=== PATIENT | female | born 1940 | race African-American/Black ===

== ENCOUNTER 2023-06-28 07:47 | Inpatient (IN) | payer MEDICARE, BC ==
[~2023-06-28] VITALS: Ht 165.1 cm; Wt 107.7 kg
[2023-06-28] VITALS (8 sets, daily range): BP systolic 130–145; BP diastolic 62–110; PULSE 73–95; RESP 18–31; TEMP 98–98.4
[2023-06-28 08:16] LABS: HEMATOCRIT. 44.4 % (36.0-48.0); HEMOGLOBIN. 13.5 g/dL (12.0-16.0); MEAN CORPUSCULAR HEMOGLOBIN 26.7 pg (28.0-32.0); MEAN CORPUSCULAR HGB CONC 30.5 g/dL (31.0-37.0); MEAN CORPUSCULAR VOLUME 87.5 fL (81.0-99.0); MEAN PLATELET VOLUME 10.2 fl (7.4-10.4); PLATELET 443 x1000/uL (130-400); RED BLOOD CELL COUNT 5.07 mill/uL (4.2-5.4); RED CELL DISTRIBUTION WIDTH 18.4 % (11.6-14.6)
[2023-06-28 08:32] LABS: ALANINE AMINOTRANSFERASE 59 IU/L (10-49); ALBUMIN 4.3 g/dL (3.2-4.8); ASPARTATE AMINOTRANSFERASE 46 IU/L (<34); BILIRUBIN TOTAL 0.8 mg/dL (0.1-1.0); CALCIUM 9.3 mg/dL (8.7-10.4); CARBON DIOXIDE 22 mEq/L (21-32); CHLORIDE 107 mEq/L (98-107); CREATININE 1.7 mg/dL (0.6-1.0); GLUCOSE 213 mg/dL (70-105); POTASSIUM 4.7 mEq/L (3.5-5.1); PROTEIN TOTAL 7.6 g/dL (6.0-8.3); SODIUM 139 mEq/L (136-145); UREA NITROGEN BLOOD 29 mg/dL (9-23)
[2023-06-28 08:52] LABS: DIFFERENTIAL COMMENT 1; WHITE BLOOD COUNT 47.3 x1000/uL (4.5-11.0)
[2023-06-28 08:59] LABS: TROPONIN I HIGH SENSITIVITY 189 ng/L (3.0-34)
[2023-06-28] MEDS ORDERED: CEFTRIAXONE 1GM PREMIX 50 ML IV ONE (09:30)
[2023-06-28] MEDS ORDERED: AZITHROMYCIN 500MG/250ML 250 ML IV ONE (09:30)
[2023-06-28 10:29] LABS: BG BASE EXCESS -4.4 mmol/L (-2.0-2.0); BG CARBOXYHEMOGLOBIN 0.3 % (0.5-1.5); BG DEOXYHEMOGLOBIN 1.1 % (0.0-5.0); BG FRACTION INSPIRED OXYGEN 100; BG HCO3 ACT 19.9 mmol/L (22.0-26.0); BG METHEMOGLOBIN 0.3 % (0.0-1.5); BG OXYGEN SATURATION 98.9 % (92.0-98.5); BG OXYHEMOGLOBIN 98.3 % (94.0-97.0); BG PCO2 34.7 mmHg (35.0-45.0); BG PH 7.377 (7.350-7.450); BG PO2 165.3 mmHg (75.0-100.0); BG SAMPLE SITE RIGHT BRACHIAL; BG TOTAL HEMOGLOBIN 14.6 g/dL (12.0-18.0); BG TOTAL RESPIRATORY RATE 27 b/min; BG VENT MODE MASK - BIPAP
[2023-06-28 12:14] LABS: INR 1.2; PROTHROMBIN TIME 12.6 sec (9.6-11.0)
[2023-06-28 12:54] LABS: ALANINE AMINOTRANSFERASE 55 IU/L (10-49); ALBUMIN 3.9 g/dL (3.2-4.8); ASPARTATE AMINOTRANSFERASE 46 IU/L (<34); BILIRUBIN TOTAL 0.7 mg/dL (0.1-1.0); CALCIUM 9.2 mg/dL (8.7-10.4); CARBON DIOXIDE 25 mEq/L (21-32); CHLORIDE 106 mEq/L (98-107); CREATININE 1.8 mg/dL (0.6-1.0); GLUCOSE 165 mg/dL (70-105); POTASSIUM 4.3 mEq/L (3.5-5.1); PROTEIN TOTAL 6.3 g/dL (6.0-8.3); SODIUM 141 mEq/L (136-145); UREA NITROGEN BLOOD 29 mg/dL (9-23)
[2023-06-28 16:33] LABS: ANISOCYTOSIS 1+; PLATELET ESTIMATE INCREASED
[2023-06-28] MEDS: METHYLPREDNISOLONE SOD SUCC 40MG/ML (ACT-O-VIAL) IV SCH (17:32)
[2023-06-28] MEDS: IPRATROPIUM/ALBUTEROL 0.5-3(2.5)MG/3ML NEB HHN SCH (20:25)
[2023-06-28] MEDS ORDERED: DIPHENHYDRAMINE 50MG/ML VIAL IV PRN (21:45)
[2023-06-28] MEDS ORDERED: MAGNESIUM/ALUMINUM HYDROXIDE/SIMETHICONE 30ML UDC PO PRN (21:45)
[2023-06-28] MEDS ORDERED: ACETAMINOPHEN 325MG TABLET PO PRN (21:45)
[2023-06-28] MEDS ORDERED: DEXTROSE 50% WATER 50ML SYRINGE IV PRN (21:45)
[2023-06-28] MEDS ORDERED: IPRATROPIUM/ALBUTEROL 0.5-3(2.5)MG/3ML NEB NEB PRN (21:45)
[2023-06-28] MEDS ORDERED: ONDANSETRON HCL 4MG/2ML INJ IV PRN (21:45)
[2023-06-28] MEDS ORDERED: CLONIDINE 0.1MG TABLET PO PRN (21:45)
[2023-06-28] MEDS: PANTOPRAZOLE 40MG DR TABLET PO SCH (22:00)
[2023-06-28] MEDS: BLOOD SUGAR DIAGNOSTIC STRIP TEST SCH (22:00)
[2023-06-28] MEDS: SODIUM CHLORIDE 0.9% INJ 3ML FLUSH IVF SCH (22:00)
[2023-06-28] MEDS: ATORVASTATIN CALCIUM 20MG TABLET PO SCH (22:00)
[2023-06-28] MEDS: ENOXAPARIN 40MG/0.4ML SYR SUBCUT SCH (22:00)
[2023-06-28] MEDS: AMIODARONE HCL 200 MG TABLET PO SCH (22:00)
[2023-06-28] MEDS: INSULIN LISPRO 100 UNITS/ML SUBCUT SCH (22:00)
[2023-06-29] VITALS (11 sets, daily range): BP systolic 101–156; BP diastolic 39–82; PULSE 74–96; RESP 18–25; TEMP 97.3–98.2; O2SAT 94–99
[2023-06-29] MEDS: METHYLPREDNISOLONE SOD SUCC 40MG/ML (ACT-O-VIAL) IV SCH ×2 (02:02→10:33)
[2023-06-29] MEDS: BLOOD SUGAR DIAGNOSTIC STRIP TEST SCH ×4 (07:30→21:43)
[2023-06-29] MEDS: INSULIN LISPRO 100 UNITS/ML SUBCUT SCH ×4 (08:00→21:00)
[2023-06-29] MEDS: IPRATROPIUM/ALBUTEROL 0.5-3(2.5)MG/3ML NEB HHN SCH ×4 (08:22→21:20)
[2023-06-29 08:53] LABS: CALCIUM 9.3 mg/dL (8.7-10.4); CARBON DIOXIDE 25 mEq/L (21-32); CHLORIDE 108 mEq/L (98-107); CREATININE 1.5 mg/dL (0.6-1.0); GLUCOSE 123 mg/dL (70-105); PHOSPHORUS 3.3 mg/dL (2.5-4.9); POTASSIUM 4.2 mEq/L (3.5-5.1); SODIUM 143 mEq/L (136-145); THYROID STIMULATING HORMONE 2.17 uIU/mL (0.55-4.78); UREA NITROGEN BLOOD 36 mg/dL (9-23)
[2023-06-29] MEDS ORDERED: AZITHROMYCIN 500 MG in DEXT 5% WATER 250 ML IV SCH (09:00)
[2023-06-29] MEDS ORDERED: CEFTRIAXONE 2GM/50ML (ADDEASE) 50 ML IV SCH (09:00)
[2023-06-29] MEDS: LEVOTHYROXINE SODIUM 125MCG TABLET PO SCH (09:20)
[2023-06-29] MEDS: PANTOPRAZOLE 40MG DR TABLET PO SCH ×2 (09:20→20:50)
[2023-06-29] MEDS: AMIODARONE HCL 200 MG TABLET PO SCH ×2 (09:21→20:50)
[2023-06-29] MEDS: CEFTRIAXONE 2 G in DEXTROSE 5% WATER 50 ML IV SCH (09:28)
[2023-06-29] MEDS: AZITHROMYCIN 500 MG in DEXT 5% WATER 250 ML IV SCH (14:04)
[2023-06-29] MEDS: SODIUM CHLORIDE 0.9% INJ 3ML FLUSH IVF SCH ×3 (14:07→20:50)
[2023-06-29] MEDS: ACETAMINOPHEN 325MG TABLET PO PRN (14:41)
[2023-06-29 16:15] LABS: HEMATOCRIT. 38.2 % (36.0-48.0); HEMOGLOBIN. 11.7 g/dL (12.0-16.0); MEAN CORPUSCULAR HEMOGLOBIN 27.1 pg (28.0-32.0); MEAN CORPUSCULAR HGB CONC 30.6 g/dL (31.0-37.0); MEAN CORPUSCULAR VOLUME 88.7 fL (81.0-99.0); MEAN PLATELET VOLUME 10.4 fl (7.4-10.4); PLATELET 384 x1000/uL (130-400); RED CELL DISTRIBUTION WIDTH 18.2 % (11.6-14.6); WHITE BLOOD COUNT 31.7 x1000/uL (4.5-11.0)
[2023-06-29 16:37] LABS: DIFFERENTIAL COMMENT 1
[2023-06-29] MEDS: ATORVASTATIN CALCIUM 20MG TABLET PO SCH (20:49)
[2023-06-29 21:39] LABS: ANISOCYTOSIS 1+; PLATELET ESTIMATE NORMAL
[2023-06-29] MEDS: ENOXAPARIN 40MG/0.4ML SYR SUBCUT SCH (21:44)
[2023-06-30] VITALS (18 sets, daily range): BP systolic 123–166; BP diastolic 54–106; PULSE 80–117; RESP 16–39; TEMP 97.2–97.9; O2SAT 89–99
[2023-06-30] MEDS: IPRATROPIUM/ALBUTEROL 0.5-3(2.5)MG/3ML NEB HHN SCH ×7 (00:20→20:31)
[2023-06-30] MEDS: METHYLPREDNISOLONE SOD SUCC 40MG/ML (ACT-O-VIAL) IV SCH ×3 (01:16→18:45)
[2023-06-30] MEDS: BLOOD SUGAR DIAGNOSTIC STRIP TEST SCH ×4 (07:30→19:59)
[2023-06-30] MEDS: INSULIN LISPRO 100 UNITS/ML SUBCUT SCH ×4 (08:00→20:40)
[2023-06-30] MEDS: PANTOPRAZOLE 40MG DR TABLET PO SCH ×2 (09:10→20:40)
[2023-06-30] MEDS: CEFTRIAXONE 2 G in DEXTROSE 5% WATER 50 ML IV SCH (09:10)
[2023-06-30] MEDS: LEVOTHYROXINE SODIUM 125MCG TABLET PO SCH (09:10)
[2023-06-30] MEDS: AMIODARONE HCL 200 MG TABLET PO SCH ×2 (09:21→20:40)
[2023-06-30] MEDS: ACETAMINOPHEN 325MG TABLET PO PRN ×2 (10:37→18:54)
[2023-06-30] MEDS: AZITHROMYCIN 500 MG in DEXT 5% WATER 250 ML IV SCH (11:59)
[2023-06-30] MEDS: SODIUM CHLORIDE 0.9% INJ 3ML FLUSH IVF SCH ×3 (13:54→20:42)
[2023-06-30] MEDS: ACETYLCYSTEINE 100MG/ML 10% VIAL 4ML INH SCH ×2 (14:00→20:35)
[2023-06-30] MEDS ORDERED: ANAS1TAB49 PO (14:40)
[2023-06-30] MEDS ORDERED: DULO30CA52 PO (14:40)
[2023-06-30] MEDS ORDERED: PANT40TA51 MT (14:41)
[2023-06-30] MEDS ORDERED: DIVA-73 PO (14:43)
[2023-06-30] MEDS ORDERED: METO-411 MT (14:43)
[2023-06-30] MEDS ORDERED: ALLO100T PO (14:43)
[2023-06-30] MEDS ORDERED: AMIO400T11 PO (14:46)
[2023-06-30] MEDS ORDERED: AMI2 PO (14:46)
[2023-06-30] MEDS ORDERED: DILT240T12 MT (14:46)
[2023-06-30] MEDS ORDERED: ATOR20TA65 MT (14:47)
[2023-06-30] MEDS ORDERED: LEVO125T8 MT (14:47)
[2023-06-30] MEDS ORDERED: TC1C15 TP (15:05)
[2023-06-30] MEDS ORDERED: NYST15PO4 TP (15:05)
[2023-06-30] MEDS ORDERED: HYDR-4005 PO (15:05)
[2023-06-30] MEDS ORDERED: GABA300S4 PO (15:05)
[2023-06-30] MEDS ORDERED: ASPI-1406 PO (15:05)
[2023-06-30] MEDS ORDERED: MAGN400C PO (15:05)
[2023-06-30] MEDS ORDERED: FURO20TA4 PO (15:05)
[2023-06-30] MEDS: ENOXAPARIN 40MG/0.4ML SYR SUBCUT SCH (20:39)
[2023-06-30] MEDS: ATORVASTATIN CALCIUM 20MG TABLET PO SCH (20:41)
[2023-06-30] MEDS: GUAIFENESIN 200MG/10ML SUGAR FREE UDC PO PRN (20:50)
[2023-07-01] VITALS (13 sets, daily range): BP systolic 128–188; BP diastolic 46–89; PULSE 74–103; RESP 15–25; TEMP 97–98; O2SAT 97–99
[2023-07-01] MEDS: IPRATROPIUM/ALBUTEROL 0.5-3(2.5)MG/3ML NEB HHN SCH ×4 (00:21→12:16)
[2023-07-01] MEDS: DIVALPROEX SODIUM 125MG SPRINKLE CAPSULE PO SCH ×2 (04:11→09:17)
[2023-07-01] MEDS: SODIUM CHLORIDE 0.9% INJ 3ML FLUSH IVF SCH ×3 (04:13→21:29)
[2023-07-01] MEDS ORDERED: DILTIAZEM HCL 60MG TABLET PO SCH (06:00)
[2023-07-01 07:21] LABS: HEMATOCRIT. 34.8 % (36.0-48.0); MEAN CORPUSCULAR HEMOGLOBIN 27.2 pg (28.0-32.0); MEAN CORPUSCULAR HGB CONC 31.7 g/dL (31.0-37.0); PLATELET 309 x1000/uL (130-400); RED BLOOD CELL COUNT 4.04 mill/uL (4.2-5.4); RED CELL DISTRIBUTION WIDTH 17.5 % (11.6-14.6)
[2023-07-01] MEDS: BLOOD SUGAR DIAGNOSTIC STRIP TEST SCH ×4 (07:30→21:28)
[2023-07-01 07:47] LABS: DIFFERENTIAL COMMENT 1
[2023-07-01] MEDS: ACETYLCYSTEINE 100MG/ML 10% VIAL 4ML INH SCH (08:00)
[2023-07-01] MEDS: GUAIFENESIN 200MG/10ML SUGAR FREE UDC PO PRN (08:57)
[2023-07-01] MEDS: FUROSEMIDE 20MG TABLET PO SCH (08:58)
[2023-07-01] MEDS: LEVOTHYROXINE SODIUM 125MCG TABLET PO SCH (08:58)
[2023-07-01] MEDS: FAMOTIDINE 20MG TABLET PO SCH (08:59)
[2023-07-01] MEDS: METOPROLOL TARTRATE 50MG TABLET PO SCH ×2 (09:00→21:29)
[2023-07-01] MEDS: ASPIRIN 81MG EC TABLET PO SCH (09:01)
[2023-07-01] MEDS: DULOXETINE HCL 30MG DR CAPSULE PO SCH (09:04)
[2023-07-01] MEDS: INSULIN LISPRO 100 UNITS/ML SUBCUT SCH ×4 (09:07→21:00)
[2023-07-01] MEDS: MAGNESIUM OXIDE 400MG TABLET PO SCH (09:16)
[2023-07-01] MEDS: AMIODARONE HCL 200 MG TABLET PO SCH ×2 (09:16→21:28)
[2023-07-01] MEDS: ALLOPURINOL 100 MG TABLET PO SCH (09:16)
[2023-07-01] MEDS: CEFTRIAXONE 2 G in DEXTROSE 5% WATER 50 ML IV SCH (09:17)
[2023-07-01] MEDS: AZITHROMYCIN 500 MG in DEXT 5% WATER 250 ML IV SCH (12:25)
[2023-07-01] MEDS: ANASTROZOLE 1 MG TABLET PO SCH (12:25)
[2023-07-01 16:31] LABS: CALCIUM 9.5 mg/dL (8.7-10.4); CARBON DIOXIDE 21 mEq/L (21-32); CHLORIDE 105 mEq/L (98-107); CREATININE 1.3 mg/dL (0.6-1.0); GLUCOSE 140 mg/dL (70-105); PHOSPHORUS 2.4 mg/dL (2.5-4.9); POTASSIUM 4.1 mEq/L (3.5-5.1); SODIUM 138 mEq/L (136-145); UREA NITROGEN BLOOD 40 mg/dL (9-23)
[2023-07-01 16:45] LABS: NUCLEATED RED BLOOD CELLS 3 /100 WBC; PLATELET ESTIMATE NORMAL
[2023-07-01] MEDS: DILTIAZEM HCL 60MG TABLET PO SCH (17:22)
[2023-07-01] MEDS ORDERED: MAGNESIUM 2 G PREMIX 50 ML IV NR (21:00)
[2023-07-01] MEDS: DIVALPROEX SODIUM 250MG DR TABLET PO SCH (21:28)
[2023-07-01] MEDS: ATORVASTATIN CALCIUM 20MG TABLET PO SCH (21:28)
[2023-07-01] MEDS: ENOXAPARIN 40MG/0.4ML SYR SUBCUT SCH (21:28)
[2023-07-02] VITALS (9 sets, daily range): BP systolic 99–176; BP diastolic 51–74; PULSE 7–75; RESP 18–22; TEMP 97–98.8; O2SAT 95–98
[2023-07-02] MEDS: NYSTATIN 100,000 UNITS/ML 5ML UDC SSW SCH ×4 (00:09→16:51)
[2023-07-02] MEDS: IPRATROPIUM/ALBUTEROL 0.5-3(2.5)MG/3ML NEB HHN SCH ×6 (04:28→23:32)
[2023-07-02] MEDS: SODIUM CHLORIDE 0.9% INJ 3ML FLUSH IVF SCH ×3 (06:24→21:18)
[2023-07-02] MEDS: DILTIAZEM HCL 60MG TABLET PO SCH ×2 (06:24)
[2023-07-02] MEDS: INSULIN LISPRO 100 UNITS/ML SUBCUT SCH ×4 (06:24→21:00)
[2023-07-02] MEDS: BLOOD SUGAR DIAGNOSTIC STRIP TEST SCH ×4 (06:24→21:18)
[2023-07-02] MEDS: LEVOTHYROXINE SODIUM 125MCG TABLET PO SCH (06:24)
[2023-07-02 07:11] LABS: BASOPHILS % 0.6 % (0.0-2.0); HEMATOCRIT. 36.9 % (36.0-48.0); HEMOGLOBIN. 11.5 g/dL (12.0-16.0); LYMPHOCYTES % 9.8 % (20.0-50.0); MEAN CORPUSCULAR HEMOGLOBIN 26.7 pg (28.0-32.0); MEAN CORPUSCULAR HGB CONC 31.1 g/dL (31.0-37.0); MEAN CORPUSCULAR VOLUME 85.8 fL (81.0-99.0); MEAN PLATELET VOLUME 9.4 fl (7.4-10.4); MONOCYTES % 11.9 % (2.0-8.0); NEUTROPHILS % 77.7 % (40.0-76.0); PLATELET 287 x1000/uL (130-400); RED CELL DISTRIBUTION WIDTH 17.9 % (11.6-14.6); WHITE BLOOD COUNT 18.9 x1000/uL (4.5-11.0)
[2023-07-02 07:41] LABS: CALCIUM 9.4 mg/dL (8.7-10.4); CREATININE 1.2 mg/dL (0.6-1.0); POTASSIUM 4.2 mEq/L (3.5-5.1)
[2023-07-02] MEDS: CEFTRIAXONE 2 G in DEXTROSE 5% WATER 50 ML IV SCH (08:50)
[2023-07-02] MEDS: AMIODARONE HCL 200 MG TABLET PO SCH ×2 (08:51→21:18)
[2023-07-02] MEDS: METOPROLOL TARTRATE 50MG TABLET PO SCH ×2 (08:51→21:18)
[2023-07-02] MEDS: ANASTROZOLE 1 MG TABLET PO SCH (08:51)
[2023-07-02] MEDS: MAGNESIUM OXIDE 400MG TABLET PO SCH (08:51)
[2023-07-02] MEDS: ALLOPURINOL 100 MG TABLET PO SCH (08:52)
[2023-07-02] MEDS: ASPIRIN 81MG EC TABLET PO SCH (08:52)
[2023-07-02] MEDS: FAMOTIDINE 20MG TABLET PO SCH (08:52)
[2023-07-02] MEDS: DIVALPROEX SODIUM 250MG DR TABLET PO SCH ×2 (08:52→21:18)
[2023-07-02] MEDS: DULOXETINE HCL 30MG DR CAPSULE PO SCH (08:52)
[2023-07-02] MEDS: DOCUSATE SODIUM 100MG CAPSULE PO SCH ×2 (08:52→16:46)
[2023-07-02] MEDS: POLYETHYLENE GLYCOL 3350 (17GM) 1 DOSE PACK PO SCH (08:53)
[2023-07-02] MEDS: FUROSEMIDE 20MG TABLET PO SCH (09:02)
[2023-07-02] MEDS: ACETYLCYSTEINE 200MG/ML 20% VIAL 4ML INH SCH ×3 (09:11→23:30)
[2023-07-02] MEDS: AZITHROMYCIN 500 MG in DEXT 5% WATER 250 ML IV SCH (12:02)
[2023-07-02] MEDS: ACETAMINOPHEN 325MG TABLET PO PRN (12:07)
[2023-07-02] MEDS: DILTIAZEM HCL 90MG TABLET PO SCH ×2 (12:09→16:46)
[2023-07-02] MEDS: ENOXAPARIN 40MG/0.4ML SYR SUBCUT SCH (21:18)
[2023-07-02] MEDS: ATORVASTATIN CALCIUM 20MG TABLET PO SCH (21:18)
[2023-07-02] MEDS ORDERED: BENZONATATE 100MG CAPSULE PO PRN (21:30)
[2023-07-03] VITALS (12 sets, daily range): BP systolic 134–154; BP diastolic 50–73; PULSE 61–75; RESP 18–24; TEMP 97.5–98.7; O2SAT 94
[2023-07-03] MEDS: NYSTATIN 100,000 UNITS/ML 5ML UDC SSW SCH ×4 (00:52→17:43)
[2023-07-03] MEDS: DILTIAZEM HCL 90MG TABLET PO SCH ×4 (00:52→17:43)
[2023-07-03] MEDS: IPRATROPIUM/ALBUTEROL 0.5-3(2.5)MG/3ML NEB HHN SCH ×4 (03:41→18:10)
[2023-07-03] MEDS: INSULIN LISPRO 100 UNITS/ML SUBCUT SCH ×4 (06:33→21:00)
[2023-07-03] MEDS: BLOOD SUGAR DIAGNOSTIC STRIP TEST SCH ×4 (06:33→20:57)
[2023-07-03] MEDS: SODIUM CHLORIDE 0.9% INJ 3ML FLUSH IVF SCH ×3 (06:33→20:57)
[2023-07-03] MEDS: LEVOTHYROXINE SODIUM 125MCG TABLET PO SCH (06:33)
[2023-07-03 07:29] LABS: HEMATOCRIT. 34.7 % (36.0-48.0); HEMOGLOBIN. 11.1 g/dL (12.0-16.0); MEAN CORPUSCULAR HGB CONC 32.1 g/dL (31.0-37.0); MEAN CORPUSCULAR VOLUME 84.3 fL (81.0-99.0); MEAN PLATELET VOLUME 9.8 fl (7.4-10.4); PLATELET 287 x1000/uL (130-400); RED BLOOD CELL COUNT 4.12 mill/uL (4.2-5.4)
[2023-07-03 08:18] LABS: CALCIUM 9.2 mg/dL (8.7-10.4); CREATININE 1.2 mg/dL (0.6-1.0); POTASSIUM 3.7 mEq/L (3.5-5.1)
[2023-07-03] MEDS: CEFTRIAXONE 2 G in DEXTROSE 5% WATER 50 ML IV SCH (08:21)
[2023-07-03 08:28] LABS: DIFFERENTIAL COMMENT 1
[2023-07-03] MEDS: ACETYLCYSTEINE 200MG/ML 20% VIAL 4ML INH SCH ×2 (08:35→18:10)
[2023-07-03] MEDS: DULOXETINE HCL 30MG DR CAPSULE PO SCH (08:45)
[2023-07-03] MEDS: MAGNESIUM OXIDE 400MG TABLET PO SCH (08:45)
[2023-07-03] MEDS: AMIODARONE HCL 200 MG TABLET PO SCH ×2 (08:45→20:57)
[2023-07-03] MEDS: FUROSEMIDE 20MG TABLET PO SCH (08:45)
[2023-07-03] MEDS: FAMOTIDINE 20MG TABLET PO SCH (08:45)
[2023-07-03] MEDS: DOCUSATE SODIUM 100MG CAPSULE PO SCH ×2 (08:45→17:43)
[2023-07-03] MEDS: DIVALPROEX SODIUM 250MG DR TABLET PO SCH ×2 (08:46→20:56)
[2023-07-03] MEDS: METOPROLOL TARTRATE 50MG TABLET PO SCH ×2 (08:46→20:57)
[2023-07-03] MEDS: ASPIRIN 81MG EC TABLET PO SCH (08:46)
[2023-07-03] MEDS: POLYETHYLENE GLYCOL 3350 (17GM) 1 DOSE PACK PO SCH (08:46)
[2023-07-03] MEDS: ALLOPURINOL 100 MG TABLET PO SCH (08:46)
[2023-07-03] MEDS: ANASTROZOLE 1 MG TABLET PO SCH (08:50)
[2023-07-03] MEDS ORDERED: MAGNESIUM OXIDE 400MG TABLET PO SCH (09:00)
[2023-07-03 16:04] LABS: ANISOCYTOSIS 1+; NUCLEATED RED BLOOD CELLS 1 /100 WBC; PLATELET ESTIMATE NORMAL
[2023-07-03] MEDS: ENOXAPARIN 40MG/0.4ML SYR SUBCUT SCH (20:56)
[2023-07-03] MEDS: ATORVASTATIN CALCIUM 20MG TABLET PO SCH (20:56)
== END 2023-07-03 22:20 | DRG 871 ==
LOC: ER 07:47 → EDBEDREQ 09:34 → 5EST 15:55 → 8WST 07-01 13:48
PROVIDERS: ADMIT Internal Medicine; ATTEND Internal Medicine
PROC: 5A09357 Assistance with Respiratory Ventilation, Less than 24 Consecutive Hours, Continuous Positive Airway Pressure (ICD-10-PCS; principal; 2023-06-28)
DX: A41.9 Sepsis, unspecified organism (principal); G82.50 Quadriplegia, unspecified; J18.9 Pneumonia, unspecified organism; G93.41 Metabolic encephalopathy; J96.01 Acute respiratory failure with hypoxia; N17.9 Acute kidney failure, unspecified; I13.0 Hypertensive heart and chronic kidney disease with heart failure and stage 1 through stage 4 chronic kidney disease, or unspecified chronic kidney disease; I50.9 Heart failure, unspecified; J45.909 Unspecified asthma, uncomplicated; E03.9 Hypothyroidism, unspecified; Z20.822 Contact with and (suspected) exposure to COVID-19; E11.22 Type 2 diabetes mellitus with diabetic chronic kidney disease; E66.01 Morbid (severe) obesity due to excess calories; R65.20 Severe sepsis without septic shock; E78.00 Pure hypercholesterolemia, unspecified; I08.1 Rheumatic disorders of both mitral and tricuspid valves; I48.0 Paroxysmal atrial fibrillation; R26.9 Unspecified abnormalities of gait and mobility; R53.81 Other malaise; N18.9 Chronic kidney disease, unspecified; R13.10 Dysphagia, unspecified; Z68.39 Body mass index [BMI] 39.0-39.9, adult; Z79.82 Long term (current) use of aspirin; Z79.84 Long term (current) use of oral hypoglycemic drugs; Z79.899 Other long term (current) drug therapy; Z85.3 Personal history of malignant neoplasm of breast; Z86.16 Personal history of COVID-19; Z86.73 Personal history of transient ischemic attack (TIA), and cerebral infarction without residual deficits; Z88.5 Allergy status to narcotic agent; Z90.11 Acquired absence of right breast and nipple; Z93.1 Gastrostomy status
CPT/HCPCS: 36415; 36600; 71045; 71250; 80048; 80053; 82375; 82805; 82962; 83036; 83605; 83735; 83880; 84100; 84145; 84443; 84484; 85025; 87426; 87804; 92523; 92610; 93005; 93306; 93970; 94640; 94644; 94660; 97110; 97116; 97163; 97166; 97530; 97535; 99291; C1893; C9803; J0456; J0696; J1650; J1815; J2920; J3475; J7060; J7608